=== PATIENT | male | born 1950 | race Caucasian/White ===

== ENCOUNTER 2022-04-20 23:40 | Emergency (ER) | payer OTHER, MEDICAID ==
[~2022-04-20] VITALS: Ht 167.6 cm; Wt 63.0 kg
[2022-04-21 05:45] LABS: HEMOGLOBIN. 15.4 g/dL (14.0-18.0); MEAN CORPUSCULAR HEMOGLOBIN 30.6 pg (28.0-32.0); MEAN CORPUSCULAR VOLUME 91.5 fL (80.0-94.0); RED BLOOD CELL COUNT 5.03 mill/uL (4.7-6.1); RED CELL DISTRIBUTION WIDTH 13.3 % (11.6-14.6)
[2022-04-21 05:53] LABS: CHLORIDE 100 mEq/L (98-107)
[2022-04-21 06:01] LABS: ETHANOL BLOOD < 10 mg/dL
[2022-04-21 07:04] LABS: PLATELET 284 x1000/uL (130-400)
[2022-04-21 07:07] LABS: PLATELET ESTIMATE NORMAL
[2022-04-21 08:33] LABS: CLARITY URINE CLOUDY (CLEAR); COLOR URINE YELLOW (YELLOW); KETONES URINE 1+ (NEGATIVE); LEUKOCYTE ESTERASE URINE 1+ (NEGATIVE); NITRITE URINE POSITIVE (NEGATIVE); OCCULT BLOOD URINE NEGATIVE (NEGATIVE); PROTEIN URINE TRACE (NEGATIVE); SPECIFIC GRAVITY URINE 1.016 (1.005-1.030)
[2022-04-21] MEDS ORDERED: ACET-2708 MT (08:33)
[2022-04-21] MEDS ORDERED: NALO4SPR BOTHNSTRLS (08:33)
[2022-04-21] MEDS ORDERED: CEPH500C2 MT (08:57)
[2022-04-21 08:59] LABS: *AMPHETAMINES SCREEN URINE PRESUMTIVE POSITIVE (NEGATIVE); *BARBITURATES SCREEN URINE NEGATIVE (NEGATIVE); *BENZODIAZEPINES SCREEN URINE NEGATIVE (NEGATIVE); *COCAINE SCREEN URINE PRESUMTIVE POSITIVE (NEGATIVE); CANNABINOID URINE SCREEN NEGATIVE (NEGATIVE); METHADONE URINE SCREEN NEGATIVE (NEGATIVE); OPIATES URINE SCREEN PRESUMTIVE POSITIVE (NEGATIVE); PHENCYCLIDINE URINE SCREEN NEGATIVE (NEGATIVE)
[2022-04-21] MEDS: CEPHALEXIN 250MG CAPSULE PO SCH ×2 (09:28→09:29)
[2022-04-21 09:32] VITALS: BP 121/62
== END 2022-04-21 11:21 | disposition home or self-care (01) ==
LOC: ER 23:40
DX: S90.31XA Contusion of right foot, initial encounter (principal); T50.7X1A Poisoning by analeptics and opioid receptor antagonists, accidental (unintentional), initial encounter; Y92.89 Other specified places as the place of occurrence of the external cause; N39.0 Urinary tract infection, site not specified; W01.0XXA Fall on same level from slipping, tripping and stumbling without subsequent striking against object, initial encounter; Y93.89 Activity, other specified; Y99.8 Other external cause status; F17.290 Nicotine dependence, other tobacco product, uncomplicated
CPT/HCPCS: 36415; 73630; 80053; 80305; 80307; 80320; 80329; 81003; 85025; 99285; G0480